=== PATIENT | male | born 1990 | race Caucasian/White ===

== ENCOUNTER 2022-11-02 11:13 | Emergency (ER) | payer OTHER ==
[2022-11-02] MEDS ORDERED: Ketorolac Tromethamine 30 MG/ML VIAL ONE (12:31)
[2022-11-02] MEDS ORDERED: Cyclobenzaprine 10 MG TAB ONE (12:32)
== END 2022-11-02 13:55 | disposition home or self-care (01) ==
LOC: CSHERS 11:13
DX: M79.18 Myalgia, other site (principal); F17.210 Nicotine dependence, cigarettes, uncomplicated
CPT/HCPCS: 96372; 99283; J1885